=== PATIENT | male | born 1965 | race Caucasian/White ===

== ENCOUNTER 2024-02-17 13:13 | Outpatient (CLI) | payer OTHER, SELFPAY ==
--- NOTE | 2024-02-17 13:45 | MR_ITS ---
[address] [address] Phone:?[phone] Fax:?[phone] Referring Physician Information: To Muhammad M.D. [address] [address] Phone:?[phone] Fax:?[phone] Patient:Benny Mustafa D.O.B:?1965 Sex:?Male Phone:?[phone] [facility] MRN:?[id number] Exam Date:?02/17/2024 EXAM: MRI of the RIGHT FIFTH FINGER WITHOUT CONTRAST CLINICAL HISTORY: Ongoing right fifth finger pain. Evaluate for flexor tendon rupture. COMPARISONS: Plain radiographs 02/09/2024. TECHNICAL: MRI sequences of the right fifth finger: Coronals: PD, STIR, T2, T1 Axials: PD, PD FS T2 Sagittals: T2, PD Sedation: None Contrast: None FINDINGS: Bones: A 1.0 x 0.4 x 0.5 cm ossification at the tip of the hook of the hamate may represent an ununited fracture fragment or an ununited ossification center. Joints: No subluxation, dislocation, or joint effusion. Tendons: There is rupture of the fifth digit flexor digitorum profundus tendon with distal tendon retraction to the level of the fifth metacarpal neck/diaphyseal junction and proximal tendon retraction proximal to the [id number] of this study. The flexor digitorum superficialis tendon of the fifth digit is intact. Collateral ligaments: Intact collateral ligaments. IMPRESSION: 1. Rupture of the fifth digit flexor digitorum profundus tendon with distal tendon retraction to the level of the fifth metacarpal neck/diaphyseal junction and proximal tendon retraction proximal to the [id number] of this study. MRI of the right wrist is recommended to evaluate the full extent of proximal tendon retraction if clinically appropriate. 2. A 1.0 x 0.4 x 0.5 cm ossification at the tip of the hook of the hamate may represent an ununited fracture fragment or an ununited ossification center. RCB Electronically signed on 02/17/2024 4:57:00 PM by Roman Jones M.D.
== END 2024-02-17 13:14 | disposition home or self-care (01) ==
LOC: MRI 13:14
PROVIDERS: PCP Internal Medicine; Visit Provider Orthopaedic Surgery
DX: M79.644 Pain in right finger(s) (principal); S56.117A Strain of flexor muscle, fascia and tendon of right little finger at forearm level, initial encounter
CPT/HCPCS: 73218

== ENCOUNTER 2024-04-26 07:53 | Outpatient (CLI) | payer OTHER, SELFPAY | END 2024-04-26 07:54 | disposition home or self-care (01) | PROVIDERS: PCP Internal Medicine; Visit Provider Internal Medicine | DX: Z13.220 Encounter for screening for lipoid disorders (principal); Z13.228 Encounter for screening for other metabolic disorders; Z12.5 Encounter for screening for malignant neoplasm of prostate | CPT/HCPCS: 80053; 80061; G0103 ==